=== PATIENT | female | born 1960 | race African-American/Black ===

== ENCOUNTER 2016-08-18 19:31 | Emergency (ER) | payer OTHER ==
[2016-08-18] MEDS ORDERED: AZITHROMYCIN 250 MG TABLET PO ONE (19:49)
[2016-08-18] MEDS ORDERED: guaiFENesin/CODEINE PHOS 30ML BOTTLE PO ONE (19:50)
[2016-08-18] MEDS ORDERED: ACETAMINOPHEN 500 MG TABLET PO ONE (19:50)
--- NOTE | 2016-08-18 19:50 | ED Physician Documentation ---
Upper Respiratory Symptoms - HISTORIAN Historian: patient - HPI Chief Complaint: Upper Respiratory Symptoms Onset: days ago Context: denies: recent foreign travel, insect bite(s), tick(s), recent chemotherapy, multiple patients Severity: moderate Associated Symptoms: chills, runny nose, sinus pain, sinus drainage, sore throat , productive cough. denies: hoarseness, chest pain, bloody cough, shortness of breath, hurts to breathe - ROS CONST/EYES: denies: weakness, eye redness, eye itching CVS/RESP: none LYMPH: denies: leg swelling, swollen glands, ankle swelling GI/: none NEURO/PSYCH: denies: fainting, dizziness, anxiety, depression MS/SKIN: denies: joint pain, muscle aches, rash - PAST HX Lung Disease: none PE Risk Factors: hypertension Allergies/Adverse Reactions: Allergies Allergy/AdvReac Type Severity Reaction Status Date / Time Penicillins Allergy Hives Verified 08/20/16 18:58 Home Medications: Ambulatory Orders Medication Instructions Recorded Fluticasone Propionate [Flonase 1 spray NS BID #1 bottle 08/20/16 Nasal [place]] Loratadine [Claritin] 10 mg PO DAILY #30 tablet 08/20/16 - SOCIAL HX Smoking History: non-smoker - FAMILY HX Family History: none - REVIEWED ASSESSMENTS Nursing Assessment Reviewed: Yes Vitals Reviewed: Yes Upper Respiratory Symptoms - EXAM General Appearance: mild distress EENT: eyes nml inspection, lids & conjunct. nml, PERRL, ear nml, pain over sinuses, frontal, maxillary, ethmoid Respiratory: no resp. distress, breath sounds nml, no pain on inspiration, speaks full sentences, no pleuritic chest pain CVS: reg rate & rhythm, heart sounds normal, equal pulses, no murmur, no gallop , PMI nml, no JVD, no friction rub, 24 Skin: color nml, no rash, warm,dry Extremities: non-tender, normal range of motion, no evidence of injury, no edema , J, [employer] Neuro/Psych: oriented x3, neuro intact, mood/affect nml, CN's nml as tested Discharge Clincal Impression: Sinusitis nasal Qualifiers: Sinusitis location: frontal Chronicity: acute Recurrence: not specified as recurrent Qualified Code(s): J01.10 - Acute frontal sinusitis, unspecified Referrals: Primary Doctor,No [Primary Care Provider] - 2 Days 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 Treat your symptoms with over the counter medication. You may want to try Vicks rub on your chest and/or feet Cough drops as needed for cough and sore throat. Increase your fluid intake juices, hot tea, non-caffeinated beverages Use a humidifier in the room where you sleep. You can also sit in a steam filled bathroom 1-2 times a day. Tylenol or Ibuprofen as needed for fever, pain and body aches. 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 Home Medications: Ambulatory Orders Fluticasone Propionate [Flonase Nasal [place]] 1 spray NS BID #1 bottle 08/20/16 Loratadine [Claritin] 10 mg PO DAILY #30 tablet 08/20/16 Condition: Stable Disposition: 01 HOME, SELF-CARE Decision to Admit: NO Decision Time: 19:48
[2016-08-18 21:53] VITALS: BP 148/75
== END 2016-08-18 20:06 | disposition home or self-care (01) ==
LOC: ED 19:31
DX: J32.9 Chronic sinusitis, unspecified (principal)
CPT/HCPCS: 99282

== ENCOUNTER 2016-08-20 18:52 | Emergency (ER) | payer OTHER ==
[2016-08-20 19:04] VITALS: BP 135/79
[2016-08-20] MEDS ORDERED: LORATADINE 10 MG TABLET PO ONE (19:21)
--- NOTE | 2016-08-20 19:24 | ED Physician Documentation ---
General Adult - HISTORIAN Historian: patient - HPI Stated Complaint: allergies Chief Complaint: General Adult Additional Information: Seen two days ago and prescribed azithromycin and robitussin. Went outside today and now has watery eyes, itchy ears, muffled hearing on left. No fever or cough. - ROS CONST: no problems - PAST HX Past History: none Surgeries/Procedures: none Allergies/Adverse Reactions: Allergies Allergy/AdvReac Type Severity Reaction Status Date / Time Penicillins Allergy Hives Verified 08/20/16 18:58 Home Medications: Ambulatory Orders Medication Instructions Recorded Fluticasone Propionate [Flonase 1 spray NS BID #1 bottle 08/20/16 Nasal [place]] Loratadine [Claritin] 10 mg PO DAILY #30 tablet 08/20/16 - SOCIAL HX Smoking History: non-smoker - FAMILY HX Family History: No - VITAL SIGNS Vital Signs: Vital Signs Temp Pulse Resp BP Pulse Ox 98.5 F 95 H 18 135/79 98 08/20/16 18:54 08/20/16 18:54 08/20/16 18:54 08/20/16 18:54 08/20/16 18:54 - REVIEWED ASSESSMENTS Nursing Assessment Reviewed: Yes Vitals Reviewed: Yes ED Results Lab/Radiology - Orders Orders: ED Orders Category Date Time Status Loratadine [Claritin] Med 08/20/16 19:21 Once 10 mg PO NOW ONE General Adult Physical Exam - PHYSICAL EXAM GENERAL APPEARANCE: mild distress EENT: eye inspection normal (except excess tearing), ENT inspection normal, pharynx normal, no signs of dehydration NECK: normal inspection, supple. No: lymphadenopathy RESPIRATORY: no resp distress, breath sounds normal CVS: reg rate & rhythm, heart sounds normal, no murmur RECTAL: deferred BACK: other (movements w/o pain) SKIN: warm/dry, normal color EXTREMITIES: normal range of motion (gait) NEURO: CN's nml as tested, motor nml, sensation nml Discharge Clincal Impression: Allergic rhinitis Prescriptions: Fluticasone Propionate [Flonase Nasal [place]] 1 spray NS BID #1 bottle Loratadine [Claritin] 10 mg PO DAILY #30 tablet Referrals: Primary Doctor,No [Primary Care Provider] - 2 Days Home Medications: Ambulatory Orders Fluticasone Propionate [Flonase Nasal [place]] 1 spray NS BID #1 bottle 08/20/16 Loratadine [Claritin] 10 mg PO DAILY #30 tablet 08/20/16 Condition: Good Disposition: 01 HOME, SELF-CARE Decision to Admit: NO Decision Time: 19:25
== END 2016-08-20 19:36 | disposition home or self-care (01) ==
LOC: ED 18:52
DX: J30.9 Allergic rhinitis, unspecified (principal)
CPT/HCPCS: 99283